=== PATIENT | female | born 1970 | race Caucasian/White ===

== ENCOUNTER 2020-04-03 16:22 | Emergency (ER) | payer OTHER ==
[2020-04-03 17:39] LABS: #Eosinphils 0.2 thou/uL (0.0-0.7); #Lymphocytes 2.1 thou/uL (1.20-3.40); #Monocytes 0.5 thou/uL (0.11-0.59); %Basophils 0.4 % (0.0-1.0); %Eosinophils 1.5 % (0.0-10.0); %Lymphocytes 21.6 % (21.0-51.0); %Monocytes 5.1 % (0.0-10.0); %Neutrophils 71.4 % (42.0-75.0); Hemoglobin 13.1 g/dL (12.0-16.0); Mean Corpuscular HGB CONC 33.1 g/dL (32.0-36.0); Mean Corpuscular Hemoglobin 31.3 pg (27.0-31.0); Mean Corpuscular Volume 94.7 fL (78.0-98.0); Mean Platelet Volume 11.3 fL (7.4-10.4); Platelet Count 185 thou/uL (130-400); RBC Distribution Width 11.1 % (11.5-14.5); Red Blood Cell (RBC) Count 4.19 mill/uL (4.20-5.40); White Blood Cell (WBC) Count 9.8 thou/uL (4.8-10.8)
[2020-04-03 17:55] LABS: ALT (SGPT) 13 U/L (8-55); AST (SGOT) 13 U/L (5-34); Albumin 3.9 g/dL (3.5-5.0); Alkaline Phosphatase 77 U/L (40-110); Anion Gap 13 mmol/L (10-20); BUN (Urea Nitrogen) 17 mg/dL (7.0-18.7); Bilirubin, Total 0.3 mg/dL (0.2-1.2); Calc. Creatinine Clearance 0 mL/min (70-130); Calcium 8.8 mg/dL (7.8-10.44); Carbon Dioxide 25 mmol/L (22-29); Chloride 106 mmol/L (98-107); Estimated GFR-MDRD 77; Globulin 2.7 g/dL (2.4-3.5); Glucose 134 mg/dL (70-105); Potassium 3.9 mmol/L (3.5-5.1); Protein, Total 6.6 g/dL (6.0-8.3); Sodium 140 mmol/L (136-145)
--- NOTE | 2020-04-03 18:14 | ULT ---
VENOUS DOPPLER ULTRASOUND OF THE LEFT LOWER EXTREMITY: 04/03/20 HISTORY: Left calf pain. TECHNIQUE: Kelley scale, color flow and spectral Doppler imaging of the deep venous system of the left lower extre mity was performed. FINDINGS: There is good flow, compression, and augmentation noted in the left common femoral, femoral, deep fem oral, popliteal, posterior tibial and greater saphenous veins. IMPRESSION: No evidence of DVT in the left lower extremity. POS: [facility]
== END 2020-04-03 18:57 | disposition home or self-care (01) ==
LOC: ERS 16:22
DX: I87.2 Venous insufficiency (chronic) (peripheral) (principal); E03.9 Hypothyroidism, unspecified; Z87.891 Personal history of nicotine dependence; Z79.899 Other long term (current) drug therapy
CPT/HCPCS: 36415; 80053; 85025; 85379

== ENCOUNTER 2020-12-03 10:43 | Outpatient (CLI) | payer OTHER | END 2020-12-03 10:44 | disposition home or self-care (01) | LOC: BICMAMMO 10:43 | PROVIDERS: ATTEND Family Medicine | DX: Z12.31 Encounter for screening mammogram for malignant neoplasm of breast (principal) | CPT/HCPCS: 77063; 77067 ==

== ENCOUNTER 2021-02-04 06:59 | Outpatient (CLI) | payer OTHER | END 2021-02-04 07:00 | disposition home or self-care (01) | LOC: BICULT 06:59 | DX: R10.9 Unspecified abdominal pain (principal) | CPT/HCPCS: 76770 ==

== ENCOUNTER 2021-05-10 14:34 | Outpatient (CLI) | payer OTHER ==
[2021-05-10 15:39] LABS: Bilirubin Neg (Negative); Blood, Urine Negative (Negative); Clarity Clear (Clear); Glucose, Urine (Dipstick) Normal (Negative); Ketone, Urine Negative (Negative); Leukocyte Negative (Negative); Nitrite Negative (Negative); Protein, Urine (Dipstick) Negative (Neg-Trace); Urobilinogen Normal mg/dL (Less than 2)
[2021-05-10 15:54] LABS: Anion Gap 15 mmol/L (10-20); BUN (Urea Nitrogen) 12 mg/dL (9.8-20.1); Calc. Creatinine Clearance 0 mL/min (70-130); Carbon Dioxide 25 mmol/L (22-29); Chloride 107 mmol/L (98-107); Glucose 87 mg/dL (70-105); Potassium 4.2 mmol/L (3.5-5.1); Sodium 143 mmol/L (136-145)
[2021-05-10 16:00] LABS: Hemoglobin 12.6 g/dL (12.0-15.5); Mean Corpuscular HGB CONC 33.4 g/dL (32.0-36.0); Mean Corpuscular Hemoglobin 33.2 pg (27.0-33.0); Mean Corpuscular Volume 99.2 fl (81.6-98.3); Mean Platelet Volume 13.3 fl (7.4-10.4); Platelet Count 242 10x3/uL (150-450); White Blood Cell (WBC) Count 11.3 10x3/uL (3.5-10.5)
[2021-05-10 16:04] LABS: Bacteria/HPF None Seen HPF (None Seen); RBC/HPF 0-3 HPF (0-3); Squamous Epithelial 0-3 HPF (0-3); WBC/HPF 0-3 HPF (0-3)
[2021-05-11 14:39] LABS: SARS-CoV-2 PCR by NAA Not Detected (NotDetected)
== END 2021-05-10 14:35 | disposition home or self-care (01) ==
LOC: LABBT 14:34
PROVIDERS: ATTEND Urology
DX: Z01.812 Encounter for preprocedural laboratory examination (principal); N39.3 Stress incontinence (female) (male); Z20.822 Contact with and (suspected) exposure to COVID-19
CPT/HCPCS: 80048; 81001; 85027; 87086; U0003; U0005

== ENCOUNTER 2021-05-14 06:14 | Day surgery (SDC) | payer OTHER ==
[2021-05-13 10:51] VITALS: BMI 31.8
[2021-05-14] MEDS ORDERED: metroNIDAZOLE 500 MG/100 ML BAG ONE (07:23)
[2021-05-14] MEDS ORDERED: ceFAZolin 2 GM/DEX 5% 100 ML BAG ONE (07:23)
[2021-05-14] MEDS ORDERED: Bupivacaine 0.25% HCL 30 ML VIAL ONE (09:05)
[2021-05-14] MEDS ORDERED: Fentanyl 100 MCG/2 ML VIAL ONE (09:14)
[2021-05-14] MEDS ORDERED: Lidocaine 1% PF 5 ML VIAL ONE (09:25)
[2021-05-14] MEDS ORDERED: Ondansetron PF 4 MG/2 ML Vial ONE (09:25)
[2021-05-14] MEDS ORDERED: PROPOFOL 200 MG/20 ML VIAL ONE (09:25)
[2021-05-14] MEDS ORDERED: Ketorolac Tromethamine 30 MG/ML VIAL ONE (10:26)
[2021-05-14] MEDS ORDERED: HYDROcodone/Acetaminophen 5/325 mg Tablet ONE (11:47)
== END 2021-05-14 12:17 | disposition home or self-care (01) ==
LOC: SDC 06:14
PROVIDERS: ATTEND Urology
PROC: 0TSD0ZZ Reposition Urethra, Open Approach (ICD-10-PCS; principal; 2021-05-14)
DX: N39.3 Stress incontinence (female) (male) (principal); F17.210 Nicotine dependence, cigarettes, uncomplicated; E07.9 Disorder of thyroid, unspecified; Z79.899 Other long term (current) drug therapy; Z88.5 Allergy status to narcotic agent; Z88.8 Allergy status to other drugs, medicaments and biological substances; Z91.018 Allergy to other foods
CPT/HCPCS: C1781; J1885; J2405; J2704; J3010; S0020

== ENCOUNTER 2021-06-30 09:26 | Outpatient (CLI) | payer OTHER | END 2021-06-30 09:27 | disposition home or self-care (01) | LOC: TBSIIMAG 09:26 | PROVIDERS: ATTEND Nurse Practitioner Family | DX: M47.22 Other spondylosis with radiculopathy, cervical region (principal); M43.12 Spondylolisthesis, cervical region | CPT/HCPCS: 72141 ==

== ENCOUNTER 2021-08-12 17:43 | Emergency (ER) | payer BC, OTHER ==
[2021-08-12 19:31] LABS: #Basophils 0.1 thou/uL (0.0-0.2); #Eosinphils 0.2 thou/uL (0.0-0.7); #Lymphocytes 2.6 thou/uL (1.20-3.40); #Monocytes 0.7 thou/uL (0.11-0.59); #Neutrophils 5.1 thou/uL (1.40-6.50); %Basophils 0.9 % (0.0-1.0); %Eosinophils 2.6 % (0.0-10.0); %Lymphocytes 30.1 % (21.0-51.0); %Monocytes 8.1 % (0.0-10.0); %Neutrophils 58.4 % (42.0-75.0); Hemoglobin 14.2 g/dL (12.0-16.0); Mean Corpuscular HGB CONC 33.8 g/dL (32.0-36.0); Mean Corpuscular Hemoglobin 33.2 pg (27.0-31.0); Mean Corpuscular Volume 98.2 fL (78.0-98.0); Mean Platelet Volume 9.7 fL (7.4-10.4); Platelet Count 229 thou/uL (130-400); RBC Distribution Width 11.2 % (11.5-14.5); Red Blood Cell (RBC) Count 4.27 mill/uL (4.20-5.40); White Blood Cell (WBC) Count 8.8 thou/uL (4.8-10.8)
[2021-08-12 19:56] LABS: ALT (SGPT) 15 U/L (8-55); AST (SGOT) 13 U/L (5-34); Alkaline Phosphatase 95 U/L (40-110); Anion Gap 13 mmol/L (10-20); BUN (Urea Nitrogen) 9 mg/dL (9.8-20.1); Bilirubin, Total 0.3 mg/dL (0.2-1.2); Calc. Creatinine Clearance 0 mL/min (70-130); Calcium 9.8 mg/dL (7.8-10.44); Carbon Dioxide 26 mmol/L (22-29); Chloride 106 mmol/L (98-107); Globulin 2.8 g/dL (2.4-3.5); Glucose 119 mg/dL (70-105); Potassium 4.4 mmol/L (3.5-5.1); Protein, Total 6.8 g/dL (6.0-8.3); Sodium 141 mmol/L (136-145)
== END 2021-08-12 20:23 | disposition home or self-care (01) ==
LOC: ERS 17:43
DX: J06.9 Acute upper respiratory infection, unspecified (principal); E03.9 Hypothyroidism, unspecified; F17.210 Nicotine dependence, cigarettes, uncomplicated
CPT/HCPCS: 36415; 71045; 80053; 83880; 84484; 85025; 93005

== ENCOUNTER 2022-02-10 10:21 | Outpatient (CLI) | payer BC | END 2022-02-10 10:22 | disposition home or self-care (01) | LOC: BICRAD 10:21 | PROVIDERS: ATTEND Nurse Practitioner Family | DX: M51.16 Intervertebral disc disorders with radiculopathy, lumbar region (principal); M47.816 Spondylosis without myelopathy or radiculopathy, lumbar region | CPT/HCPCS: 72110 ==

== ENCOUNTER 2022-03-18 08:01 | Outpatient (CLI) | payer BC | END 2022-03-18 08:02 | disposition home or self-care (01) | LOC: BICMAMMO 08:01 | PROVIDERS: ATTEND Family Medicine | DX: Z12.31 Encounter for screening mammogram for malignant neoplasm of breast (principal); Z13.820 Encounter for screening for osteoporosis | CPT/HCPCS: 77063; 77067; 77080 ==

== ENCOUNTER 2022-07-19 08:02 | Day surgery (SDC) | payer BC ==
[2022-07-18 09:08] VITALS: BMI 36.8
[2022-07-19] MEDS ORDERED: Bupivacaine PF 0.5% 30 ML VIAL ONE (10:38)
[2022-07-19] MEDS ORDERED: Bacitracin Zinc Ointment 30 gm TUBE ONE (10:38)
[2022-07-19] MEDS ORDERED: Fentanyl 250 MCG/5 ML VIAL ONE (11:34)
[2022-07-19] MEDS ORDERED: HYDROmorphone 0.5 MG/0.5 ML SYRINGE ONE (11:34)
[2022-07-19] MEDS ORDERED: Sodium Chloride 0.9% 100 ML ONE (11:40)
[2022-07-19] MEDS ORDERED: CEFAZOLIN 2 GM VIAL ONE (11:40)
[2022-07-19] MEDS ORDERED: Lidocaine 1% PF 5 ML VIAL ONE (12:00)
[2022-07-19] MEDS ORDERED: PROPOFOL 200 MG/20 ML VIAL ONE (12:00)
[2022-07-19] MEDS ORDERED: Ondansetron PF 4 MG/2 ML Vial ONE (12:00)
[2022-07-19] MEDS ORDERED: Dexamethasone 20 MG/5 ML VIAL ONE (12:00)
[2022-07-19] MEDS ORDERED: Ketorolac Tromethamine 30 MG/ML VIAL ONE (12:00)
== END 2022-07-19 14:55 | disposition home or self-care (01) ==
LOC: SDC 08:02
PROVIDERS: ATTEND Orthopaedic Surgery Hand Surgery
PROC: 01N50ZZ Release Median Nerve, Open Approach (ICD-10-PCS; principal; 2022-07-19)
DX: G56.12 Other lesions of median nerve, left upper limb (principal); G56.02 Carpal tunnel syndrome, left upper limb; M19.90 Unspecified osteoarthritis, unspecified site; E07.9 Disorder of thyroid, unspecified; F17.210 Nicotine dependence, cigarettes, uncomplicated; Z79.890 Hormone replacement therapy; Z79.899 Other long term (current) drug therapy; Z88.5 Allergy status to narcotic agent; Z88.8 Allergy status to other drugs, medicaments and biological substances; Z91.013 Allergy to seafood; Z91.018 Allergy to other foods
CPT/HCPCS: J1100; J1170; J1885; J2405; J2704; J3010; J3490; S0020

== ENCOUNTER 2023-06-24 13:19 | Emergency (ER) | payer BC | END 2023-06-24 15:30 | disposition home or self-care (01) | LOC: ERS 13:19 | DX: M79.89 Other specified soft tissue disorders (principal); I10 Essential (primary) hypertension; E03.9 Hypothyroidism, unspecified; F17.210 Nicotine dependence, cigarettes, uncomplicated; Z79.82 Long term (current) use of aspirin; Z79.899 Other long term (current) drug therapy ==

== ENCOUNTER 2023-07-01 16:31 | Emergency (ER) | payer BC ==
[2023-07-01] MEDS ORDERED: Ketorolac Tromethamine 30 MG/ML VIAL ONE (18:15)
[2023-07-01] MEDS ORDERED: traMADol HCl 50 MG TAB ONE (18:15)
== END 2023-07-01 18:45 | disposition home or self-care (01) ==
LOC: ERS 16:31
DX: S83.92XA Sprain of unspecified site of left knee, initial encounter (principal); I10 Essential (primary) hypertension; F17.210 Nicotine dependence, cigarettes, uncomplicated; W10.9XXA Fall (on) (from) unspecified stairs and steps, initial encounter
CPT/HCPCS: 96372; J1885

== ENCOUNTER 2023-07-10 14:33 | Outpatient (CLI) | payer BC | END 2023-07-10 14:34 | disposition home or self-care (01) | LOC: BICMRI 14:33 | PROVIDERS: ATTEND Orthopaedic Surgery | DX: M23.92 Unspecified internal derangement of left knee (principal); S83.242A Other tear of medial meniscus, current injury, left knee, initial encounter; M22.42 Chondromalacia patellae, left knee ==

== ENCOUNTER 2023-09-01 14:59 | Outpatient (CLI) | payer BC ==
[2023-09-01 16:11] LABS: #Basophils 0.1 10x3/uL (0.0-0.2); #Eosinphils 0.2 10x3/uL (0.0-0.5); #Monocytes 0.5 10x3/uL (0.0-1.1); #Neutrophils 4.8 10x3/uL (1.5-8.4); %Basophils 0.7 % (0.0-2.0); %Eosinophils 2.6 % (0.0-6.0); %Lymphocytes 30.6 % (18.0-47.0); %Monocytes 6.5 % (0.0-10.0); %Neutrophils 59.2 % (40.0-75.0); Hematocrit 38.7 % (34.9-44.5); Hemoglobin 13.4 g/dL (12.0-15.5); Mean Corpuscular HGB CONC 34.6 g/dL (32.0-36.0); Mean Corpuscular Hemoglobin 31.6 pg (27.0-33.0); Mean Corpuscular Volume 91.3 fl (81.6-98.3); Mean Platelet Volume 12.4 fl (7.4-10.4); Platelet Count 264 10x3/uL (150-450); RBC Distribution Width 12.2 % (11.5-14.5); Red Blood Cell (RBC) Count 4.24 10x6/uL (3.90-5.03)
[2023-09-01 16:30] LABS: Anion Gap 14 mmol/L (10-20); BUN (Urea Nitrogen) 11 mg/dL (9.8-20.1); Calc. Creatinine Clearance 0 mL/min (70-130); Calcium 9.1 mg/dL (7.8-10.44); Carbon Dioxide 26 mmol/L (22-29); Chloride 104 mmol/L (98-107); Estimated GFR 95; Glucose 98 mg/dL (70-105); Sodium 140 mmol/L (136-145)
== END 2023-09-01 15:00 | disposition home or self-care (01) ==
LOC: LABBT 14:59
PROVIDERS: ATTEND Orthopaedic Surgery
DX: Z01.818 Encounter for other preprocedural examination (principal); S83.242A Other tear of medial meniscus, current injury, left knee, initial encounter
CPT/HCPCS: 80048; 85025; 93005; 93010

== ENCOUNTER 2023-09-06 07:32 | Day surgery (SDC) | payer BC, OTHER ==
[2023-09-01 15:32] VITALS: BMI 35.7
[2023-09-06] MEDS ORDERED: Bupivacaine PF 0.5% 30 ML VIAL ONE ×2 (08:37→08:59)
[2023-09-06] MEDS ORDERED: fentaNYL 50 mcg/mL 1 mL Vial ONE (08:37)
[2023-09-06] MEDS ORDERED: Midazolam HCl 2 mg/2 ml Vial ONE (08:37)
[2023-09-06] MEDS ORDERED: PROPOFOL 20 ML ONE (09:04)
[2023-09-06] MEDS ORDERED: fentaNYL PF 100 MCG/2 ML SYRINGE ONE (09:06)
[2023-09-06] MEDS ORDERED: Sodium Chloride 0.9% 100 ML ONE (09:55)
[2023-09-06] MEDS ORDERED: CEFAZOLIN 2 GM VIAL ONE (09:55)
[2023-09-06] MEDS ORDERED: Ketorolac Tromethamine 30 MG (1 mL) VIAL ONE (10:25)
[2023-09-06] MEDS ORDERED: Ondansetron PF 4 MG/2 ML Vial ONE (10:25)
[2023-09-06] MEDS ORDERED: Dexamethasone 4 mg/ml Vial ONE (10:25)
[2023-09-06] MEDS ORDERED: HYDROmorphone 2 MG/ML VIAL ONE (11:04)
[2023-09-06] MEDS ORDERED: Ondansetron ODT 4 MG TAB ONE (13:56)
[2023-09-06] MEDS ORDERED: Promethazine 25 MG TAB ONE (14:29)
[2023-09-06 16:39] VITALS: BP 115/75
== END 2023-09-06 15:15 | disposition home or self-care (01) ==
LOC: SDC 07:32
PROVIDERS: ATTEND Orthopaedic Surgery
PROC: 0SBD4ZZ Excision of Left Knee Joint, Percutaneous Endoscopic Approach (ICD-10-PCS; principal; 2023-09-06)
DX: S83.249A Other tear of medial meniscus, current injury, unspecified knee, initial encounter (principal); F32.A Depression, unspecified; G43.909 Migraine, unspecified, not intractable, without status migrainosus; E07.9 Disorder of thyroid, unspecified; F17.210 Nicotine dependence, cigarettes, uncomplicated; Z88.5 Allergy status to narcotic agent; Z88.8 Allergy status to other drugs, medicaments and biological substances; Z79.890 Hormone replacement therapy; Z79.899 Other long term (current) drug therapy
CPT/HCPCS: C1713; J0665; J1100; J1170; J1885; J2250; J2405; J2704; J3010; J3490; Q0162; Q0169

== ENCOUNTER 2024-06-05 12:29 | Outpatient (CLI) | payer OTHER | END 2024-06-05 12:30 | disposition home or self-care (01) | LOC: BICULT 12:29 | DX: R10.11 Right upper quadrant pain (principal); D25.9 Leiomyoma of uterus, unspecified | CPT/HCPCS: 76700; 76856 ==